=== PATIENT | male | born 1995 | race Caucasian/White ===

== ENCOUNTER 2019-09-30 01:47 | Emergency (ER) | payer SELFPAY ==
--- NOTE | 2019-09-30 01:54 | ED Physician Documentation ---
History of Present Illness - Stated complaint Stated Complaint: LT LEG PAIN - History obtained from History obtained from: Patient (the patient is a 24 y/o m who p/w a cc of 2 weeks of left thigh pain. he denies any trauma or weakness or sob. he denies any back pain or any bowerl or bladder dysfunction, denies any hx of dvt or pe. reports left thigh pain worse with standing.) Review of Systems Constitutional: reports: Reviewed and negative Eyes: reports: Reviewed and negative Ears: reports: Reviewed and negative Nose: reports: Reviewed and negative Throat: reports: Reviewed and negative Cardiac: reports: Reviewed and negative Respiratory: reports: Reviewed and negative GI: reports: Reviewed and negative : reports: Reviewed and negative Skin: reports: Reviewed and negative Musculoskeletal: reports: Extremity pain Neurologic: reports: Reviewed and negative Psychiatric: reports: Reviewed and negative Endocrine: reports: Reviewed and negative Immunocompromised: reports: Reviewed and negative PD PAST MEDICAL HISTORY - Present Medications Home Medications: Ambulatory Orders Medication Instructions Recorded Confirmed No Known Home Medications 09/30/19 09/30/19 - Allergies Allergies/Adverse Reactions: Allergies Allergy/AdvReac Type Severity Reaction Status Date / Time No Known Drug Allergies Allergy Verified 09/30/19 02:16 PD ED PE NORMAL - Vitals Vital signs reviewed: Yes - General General: Alert and oriented X 3, No acute distress, Well developed/nourished - HEENT HEENT: Atraumatic, PERRL, EOMI, Ears normal, Moist mucous membranes, Pharynx benign, Dentition benign - Neck Neck: Supple, no meningeal sign, No bony TTP, No JVD, No bruit, Other - Cardiac Cardiac: RRR, No murmur, Strong equal pulses - Respiratory Respiratory: No respiratory distress, Clear bilaterally - Abdomen Abdomen: Normal bowel sounds, Soft, Non tender, Non distended - Back Back: No CVA TTP, No spinal TTP - Derm Derm: Warm and dry - Extremities Extremities: No deformity, Normal ROM s pain, No edema, No calf tenderness / cord, Other (mild tenderness over left IT band, normal gait, strength is 5/5 in b/l LE, no swelling, no effusions, no crepitus, no discoloration, cap refill less than 2 seconds. ) - Neuro Neuro: Alert and oriented X 3 - Psych Psych: Normal mood, Normal affect Results - Vitals Vitals: Vital Signs - 24 hr 09/30/19 01:50 Temperature 36.4 C L Heart Rate 100 Respiratory 16 Rate Blood Pressure 132/97 H O2 Saturation 100 Oxygen O2 Source Room air PD MEDICAL DECISION MAKING - ED course Complexity details: re-evaluated patient, d/w patient (radiographs recommend MRI. Patient updated, will place in knee immobilizer, provide crutches and keep non weight bearing, and referral provided to patient for orthopedic surgeon for MRI as outpatient. return to ED w any concerns.) Departure - Departure Disposition: Home, Self Care Clinical Impression: Pain of lower extremity Qualifiers: Laterality: left Qualified Code(s): M79.605 - Pain in left leg Condition: Good Instructions: ED Contusion Lower Ext Follow-Up: Tom Stevens MD [Provider Admit Priv/Credential] - Comments: Follow up with orthopedic surgery and or your primary care provider this week to schedule and MRI of your left thigh. Use splint and crutches, do not put weight on your left leg, take ibuprofen as needed for pain. Final Report PT NAME: RUSS RHODES MR#: [id number] REG ER/ED AGE: 24 CI DT/TM: 09/30/1911/14/213 PCP: : 1995 ATT: SEX: M ORD: Ozzy Vanegas EXAM: [id number] XR/FEML2 ([id number]) Reason: left thigh pain Procedure Date: 09/30/2019 Accession Number: [id number] / [id number] Procedure: XR - Femur 2V LT CPT Code: Final Report FULL RESULT: EXAM: LEFT FEMUR RADIOGRAPHY EXAM DATE: 09/30/2019 02:39 AM. CLINICAL HISTORY: Left thigh pain. COMPARISON: None. TECHNIQUE: 2 views. FINDINGS: Bones: Questionable permeative pattern in the lateral cortex of the femoral shaft. Consider MRI for further characterization. Joints: The visualized hip and knee joints are normal. No effusions. Soft Tissues: Normal. No soft tissue swelling. IMPRESSION: Questionable permeative pattern in the lateral cortex of the femoral shaft. Consider MRI with and without contrast for further characterization. [facility] Collator Operator: Reading Radiologist: Armin Mccracken MD Releasing Radiologist: Armin Mccracken MD Released Date Time: 09/30/19244 Report 4 cc: Ozzy Jones DO Principal Computer Systems Auditor Name: Armin Mccracken Provider ID: [id number] Discharge Date/Time: 09/30/19 03:38
[2019-09-30 01:55] VITALS: BP 132/97
[2019-09-30] MEDS ORDERED: IBUPROFEN 800 MG TABLET PO STA (02:14)
--- NOTE | 2019-09-30 02:53 | XRAY Report ---
Reason: left thigh pain Procedure Date: 09/30/2019 Accession Number: [id number] / [id number] Procedure: XR - Femur 2V LT CPT Code: Final Report FULL RESULT: EXAM: LEFT FEMUR RADIOGRAPHY EXAM DATE: 09/30/2019 02:39 AM. CLINICAL HISTORY: Left thigh pain. COMPARISON: None. TECHNIQUE: 2 views. FINDINGS: Bones: Questionable permeative pattern in the lateral cortex of the femoral shaft. Consider MRI for further characterization. Joints: The visualized hip and knee joints are normal. No effusions. Soft Tissues: Normal. No soft tissue swelling. IMPRESSION: Questionable permeative pattern in the lateral cortex of the femoral shaft. Consider MRI with and without contrast for further characterization. [facility]
== END 2019-09-30 03:38 | disposition home or self-care (01) ==
LOC: ED 01:47
DX: M79.652 Pain in left thigh (principal)
CPT/HCPCS: 73552; 99283; 99284; A9270

== ENCOUNTER 2019-10-05 10:25 | Outpatient (CLI) | payer SELFPAY ==
[2019-10-05] MEDS ORDERED: GADOBUTROL 7.5 MMOL/7.5 ML VIAL ONE (10:35)
== END 2019-10-05 10:26 | disposition home or self-care (01) ==
LOC: DI 10:25
PROVIDERS: ATTEND Orthopaedic Surgery Sports Medicine
DX: Z53.9 Procedure and treatment not carried out, unspecified reason (principal)

== ENCOUNTER 2019-10-07 10:39 | Emergency (ER) | payer SELFPAY ==
[2019-10-07 12:11] VITALS: BP 139/100
[2019-10-07] MEDS ORDERED: KETOROLAC 60 MG/2 ML VIAL IM STA (12:50)
[2019-10-07] MEDS ORDERED: CYCLOBENZAPRINE 10 MG TABLET PO STA (12:50)
--- NOTE | 2019-10-07 12:52 | ED Physician Documentation ---
History of Present Illness - Stated complaint Stated Complaint: L SIDE/HIP PX - Chief complaint Chief Complaint: Ext Problem - History obtained from History obtained from: Patient - History of Present Illness Timing: How many weeks ago (3) Pain level max: 8 Pain level now: 8 - Additonal information Additional information: 24-year-old male presents the emergency department stating that his left leg has been hurting for the past 3 weeks. Seen here 1 week ago. Possible permeative process in the lateral cortex of the left femoral shaft. He saw orthopedics who ordered an MRI. He states that he needs an x-ray of his orbits before the MRI can be done. Has been taking Motrin for pain. Does not recall any injury. Works at [employer]. States he took Motrin this morning. Worse with movement and better with rest. No swelling. Review of Systems Ten Systems: 10 systems reviewed and negative Constitutional: denies: Fever, Chills Ears: denies: Ear pain Nose: denies: Rhinorrhea / runny nose, Congestion GI: denies: Vomiting, Diarrhea : denies: Dysuria Skin: denies: Rash Musculoskeletal: denies: Neck pain, Back pain Neurologic: denies: Headache PD PAST MEDICAL HISTORY - Past Medical History Cardiovascular: None Respiratory: None Neuro: None Endocrine/Autoimmune: None GI: None : None HEENT: None Psych: None Musculoskeletal: None Derm: None - Past Surgical History Past Surgical History: Yes - Present Medications Home Medications: Ambulatory Orders Medication Instructions Recorded Confirmed Cyclobenzaprine [Flexeril] 10 mg PO TID PRN #20 tablet 10/07/19 Meloxicam [Mobic] 15 mg PO DAILY PRN #20 tablet 10/07/19 - Allergies Allergies/Adverse Reactions: Allergies Allergy/AdvReac Type Severity Reaction Status Date / Time No Known Drug Allergies Allergy Verified 09/30/19 02:16 - Social History Does the pt smoke?: No Smoking Status: Current every day smoker Does the pt drink ETOH?: Yes ETOH Use: Beer Does the pt have substance abuse?: Yes Substance Use and Type: Marijuana - Immunizations Immunizations are current?: Yes - POLST Patient has POLST: No PD ED PE NORMAL - Vitals Vital signs reviewed: Yes - General General: Alert and oriented X 3, No acute distress - HEENT HEENT: Moist mucous membranes - Neck Neck: Supple, no meningeal sign - Cardiac Cardiac: RRR - Respiratory Respiratory: No respiratory distress, Clear bilaterally - Back Back: No CVA TTP, No spinal TTP - Derm Derm: Warm and dry - Extremities Extremities: No edema, No calf tenderness / cord, Other (Tender to palpation diffusely along the left thigh. No crepitus. No skin changes. No swelling. Neurovascular intact) - Neuro Neuro: Alert and oriented X 3, No motor deficit, No sensory deficit Results - Vitals Vitals: Vital Signs - 24 hr 10/07/19 10/07/19 10:52 12:10 Temperature 36.8 C 37.2 C Heart Rate 83 73 Respiratory 18 20 Rate Blood Pressure 129/91 H 139/100 H O2 Saturation 99 99 Oxygen O2 Source Room air - Labs Labs: Laboratory Tests 10/07/19 10/07/19 13:03 13:03 WBC 12.0 H RBC 5.31 Hgb 15.8 Hct 46.1 MCV 86.8 MCH 29.8 MCHC 34.3 RDW 12.4 Plt Count 288 MPV 11.0 Neut # (Auto) 9.2 H Lymph # (Auto) 1.5 Talbot # (Auto) 1.1 H Eos # (Auto) 0.1 Baso # (Auto) 0.1 Absolute Nucleated RBC 0.00 Nucleated RBC % 0.0 Sodium 138 Potassium 3.5 Chloride 100 L Carbon Dioxide 26 Anion Gap 12.0 BUN 14 Creatinine 0.8 Estimated GFR (MDRD) 118 Glucose 110 H Calcium 9.6 Total Bilirubin 0.6 AST 20 ALT 21 Alkaline Phosphatase 78 Total Protein 8.1 Albumin 4.0 Globulin 4.1 Albumin/Globulin Ratio 1.0 PD MEDICAL DECISION MAKING - ED course Complexity details: reviewed results, re-evaluated patient, considered differential, d/w patient ED course: Unclear etiology of his pain. Feels better after Toradol and Flexeril. He is supposed to have an MRI on the left femur. No significant lab abnormalities. Ambulating well. We will prescribe pain medication for home. Patient counseled regarding signs and symptoms for which I believe and urgent re-evaluation would be necessary. Patient with good understanding of and agreement to plan and is comfortable going home at this time This document was made in part using voice recognition software. While efforts are made to proofread this document, sound alike and grammatical errors may occur. Departure - Departure Disposition: Home, Self Care Clinical Impression: Pain of lower extremity Qualifiers: Laterality: left Qualified Code(s): M79.605 - Pain in left leg Condition: Good Instructions: ED Acute Pain [facility] Follow-Up: Uri Taylor MD [Primary Care Provider] - Within 1 week Prescriptions: Cyclobenzaprine [Flexeril] 10 mg PO TID PRN #20 tablet PRN Reason: Spasms Meloxicam [Mobic] 15 mg PO DAILY PRN #20 tablet PRN Reason: pain Comments: The cause of your pain is unclear today. Follow-up with your doctor and orthopedics for further care. You should have the MRI as instructed by Dr. Setvens. Do not drive or operate heavy machinery while taking the Flexeril. Discharge Date/Time: 10/07/19 13:52
[2019-10-07 13:14] LABS: BASOPHILS # (AUTO) 0.1 10^3/uL (0.0-0.1); BASOPHILS % (AUTO) 0.4 %; EOSINOPHILS # (AUTO) 0.1 10^3/uL (0.0-0.7); EOSINOPHILS % (AUTO) 1.2 %; HGB - HEMOGLOBIN 15.8 g/dL (14.0-18.0); LYMPHOCYTES # (AUTO) 1.5 10^3/uL (1.5-3.5); LYMPHOCYTES % (AUTO) 12.1 %; MEAN CORPUSCULAR HEMOGLOBIN 29.8 pg (27.0-31.0); MEAN CORPUSCULAR HGB CONC 34.3 g/dL (32.0-36.0); MEAN CORPUSCULAR VOLUME 86.8 fL (80.0-94.0); MONOCYTES # (AUTO) 1.1 10^3/uL (0.0-1.0); MONOCYTES % (AUTO) 9.3 %; NEUTROPHILS # (AUTO) 9.2 10^3/uL (1.5-6.6); NEUTROPHILS % (AUTO) 76.7 %; PLT - PLATELET COUNT 288 10^3/uL (130-450); RED BLOOD COUNT 5.31 10^6/uL (4.70-6.10); RED CELL DISTRIBUTION WIDTH 12.4 % (12.0-15.0)
[2019-10-07 13:26] LABS: BILIRUBIN,TOTAL 0.6 mg/dL (0.2-1.0); CALCIUM 9.6 mg/dL (8.5-10.3); CREATININE 0.8 mg/dL (0.6-1.2); TOTAL PROTEIN 8.1 g/dL (6.7-8.2)
== END 2019-10-07 13:52 | disposition home or self-care (01) ==
LOC: ED 10:39
DX: M79.605 Pain in left leg (principal); F17.200 Nicotine dependence, unspecified, uncomplicated
CPT/HCPCS: 36415; 80053; 85025; 96372; 99283; 99284; A9270

== ENCOUNTER 2019-10-09 17:06 | Outpatient (CLI) | payer SELFPAY ==
--- NOTE | 2019-10-09 17:25 | XRAY Report ---
Reason: HX OF METAL IN EYES Procedure Date: 10/09/2019 Accession Number: [id number] / [id number] Procedure: XR - Eye Foreign Body CPT Code: Final Report FULL RESULT: EXAM: ORBITS RADIOGRAPHY EXAM DATE: 10/09/2019 05:18 PM. HISTORY: MRI needed. Patient history makes an orbital metallic foreign body possible. History of metal in eyes. COMPARISONS: None. TECHNIQUE: 1 view. FINDINGS: Bones: Normal. No fractures or bone lesions. Sinuses: Normal. No opacities or fluid levels. Other: Normal. No soft tissue swelling. No radiopaque foreign bodies. IMPRESSION: Normal orbit radiography. No radiopaque foreign bodies. [facility]
[2019-10-09] MEDS ORDERED: GADOBUTROL 7.5 MMOL/7.5 ML VIAL ONE (17:46)
[2019-10-09] MEDS ORDERED: GADOBUTROL 7.5 MMOL/7.5 ML VIAL IVP ONE (18:48)
--- NOTE | 2019-10-09 20:14 | MRI Report ---
Reason: LT THIGH PAIN Procedure Date: 10/09/2019 Accession Number: [id number] / [id number] Procedure: MRI - Femur/Thigh LT W/WO CPT Code: Final Report FULL RESULT: EXAM: LEFT FEMUR/THIGH MRI WITHOUT AND WITH CONTRAST EXAM DATE: 10/09/2019 07:01 PM. CLINICAL HISTORY: LT THIGH PAIN. COMPARISON: FEMUR 2V LT 09/30/2019 2:11 AM. TECHNIQUE: Multiplanar, multisequence T1-weighted and fluid-sensitive sequences of the thigh before and after administration of intravenous contrast. IV contrast: GADAVIST . Other: None. FINDINGS: There is a marked abnormality of the midshaft of the left femur and overlying soft tissues. This includes diffuse T2 hyperintensity and T1 hypointensity as well as enhancement in the central medullary space with an irregular defect in the overlying lateral cortex of the mid femoral diaphysis. There is also diffuse somewhat heterogeneous T2 hyperintensity and enhancement surrounding this lesion in the overlying vastus intermedius muscle. The intramedullary signal abnormality encompasses a region measuring 13.5 cm from proximal to distal. The cortical defect of the lateral femoral cortex encompasses a region measuring 6.1 cm proximal to distal. The abnormal tissue in the vastus intermedius surrounding the femoral abnormality encompasses a region measuring 5.4 cm AP by 4.6 cm transverse by 13.1 cm craniocaudad. The findings are somewhat nonspecific. This may reflect osteomyelitis with overlying infectious myositis of the vastus intermedius, though no intramedullary or extraosseous abscess is apparent. Alternatively, it is possible this reflects malignancy, potentially osteosarcoma or Parson sarcoma. Correlation with signs or symptoms of infection is suggested. There is linear T2 hyperintensity/enhancement along the intermuscular fascial planes between the superficial margin of the vastus intermedius and deep margin of the vastus lateralis, between the superficial margin of the vastus intermedius and rectus femoris, and between the superficial margin of the vastus intermedius and the deep margin of the vastus medialis. If the femoral abnormality is infectious this suggests extension of inflammation in the intermuscular fascial planes. If this is neoplastic it raises the question of tumor extension along the fascial margins. Much smaller more linear foci of T2 hyperintensity extending distally from the intramedullary lesion towards the distal femoral metaphysis. These appear vascular and are probably not further foci of infection or potential neoplasm. Osseous and soft tissues elsewhere are normal. IMPRESSION: 1. Markedly abnormal left thigh MRI including diffusely abnormal signal in the medullary space of the mid femoral diaphysis, an overlying irregular defect in the lateral cortex of the mid femoral diaphysis, and diffuse surrounding soft tissue abnormality in the vastus intermedius. Diffuse enhancement is present throughout this region. Though it is possible this reflects osteomyelitis and infectious myositis, there is no abscess either within the medullary space nor in the overlying soft tissues. It is possible this instead reflects soft tissue sarcoma including Parson's sarcoma or osteosarcoma. SENDY The call report notification system was initiated by Dr. Jake John at 07:12 PM on 10/09/2019. Comment: Multiple attempts were made to reach Dr. Stevens without success. The above findings were discussed directly with the patient. The patient reports severe thigh pain and he was encouraged to seek care at his local emergency room, and also notify the emergency room doctor of his abnormal MRI, and he was given instructions on how to reach [facility] so the MRI report could be transmitted to the emergency room. The patient was also instructed to contact Dr. Stevens's office first thing in the morning.
== END 2019-10-09 17:07 | disposition home or self-care (01) ==
LOC: DI 17:06
PROVIDERS: ATTEND Orthopaedic Surgery Sports Medicine
DX: M79.652 Pain in left thigh (principal); R93.6 Abnormal findings on diagnostic imaging of limbs; Z87.828 Personal history of other (healed) physical injury and trauma
CPT/HCPCS: 70030; 73720; A9585

== ENCOUNTER 2019-10-09 20:14 | Emergency (ER) | payer SELFPAY ==
[2019-10-09] MEDS ORDERED: HYDROmorphone 1 MG/ML CARPUJECT IM STA (20:41)
[2019-10-09] MEDS ORDERED: oxyCODONE/ACET 5/325 Prepack 4 PO STA (20:42)
--- NOTE | 2019-10-09 20:42 | ED Physician Documentation ---
History of Present Illness - Stated complaint Stated Complaint: ABNORMAL MRI - Chief complaint Chief Complaint: Ext Problem - History obtained from History obtained from: Patient (He is had several weeks of atraumatic and worsening left thigh pain. He was seen here and x-ray was mildly abnormal and followed up with Dr. Stevens and had an MRI today showing likely bone cancer. Nothing in the history really suggest infection. I was able to talk with Dr. Stevens who will follow up with the patient tomorrow.) - History of Present Illness Timing: Other Review of Systems Constitutional: denies: Fever, Chills Nose: reports: Reviewed and negative Cardiac: reports: Reviewed and negative Respiratory: reports: Reviewed and negative PD PAST MEDICAL HISTORY - Past Medical History Past Medical History: No Cardiovascular: None Respiratory: None Neuro: None Endocrine/Autoimmune: None GI: None : None HEENT: None Psych: None Musculoskeletal: None Derm: None - Past Surgical History Past Surgical History: No - Present Medications Home Medications: Ambulatory Orders Medication Instructions Recorded Confirmed Cyclobenzaprine [Flexeril] 10 mg PO TID PRN #20 tablet 10/07/19 Meloxicam [Mobic] 15 mg PO DAILY PRN #20 tablet 10/07/19 Oxycodone HCl/Acetaminophen 1 - 2 each PO Q6H PRN #30 tablet 10/09/19 [Percocet 5-325 mg Tablet] - Allergies Allergies/Adverse Reactions: Allergies Allergy/AdvReac Type Severity Reaction Status Date / Time No Known Drug Allergies Allergy Verified 10/09/19 20:22 - Social History Does the pt smoke?: No Smoking Status: Never smoker Does the pt drink ETOH?: Yes Does the pt have substance abuse?: Yes - Immunizations Immunizations are current?: Yes - POLST Patient has POLST: No PD ED PE NORMAL - Vitals Vital signs reviewed: Yes - General General: Alert and oriented X 3, Other (appears in pain) - Extremities Extremities: Other (No obvious deformity or skin changes of the left thigh/femur) - Neuro Neuro: Alert and oriented X 3, Normal speech Results - Vitals Vitals: Vital Signs - 24 hr 10/09/19 10/09/19 20:22 21:20 Temperature 36.6 C Heart Rate 94 90 Respiratory 16 14 Rate Blood Pressure 142/83 H 140/80 H O2 Saturation 99 99 Oxygen O2 Source Room air - Labs Labs: Laboratory Tests 10/09/19 10/09/19 10/09/19 20:52 20:52 20:52 WBC 11.5 H RBC 5.09 Hgb 15.4 Hct 44.0 MCV 86.4 MCH 30.3 MCHC 35.0 RDW 11.9 L Plt Count 311 MPV 10.8 Neut # (Auto) 8.2 H Lymph # (Auto) 2.1 Cecil # (Auto) 1.1 H Eos # (Auto) 0.1 Baso # (Auto) 0.0 Absolute Nucleated RBC 0.00 Nucleated RBC % 0.0 ESR 25 H Sodium 137 Potassium 3.0 L Chloride 97 L Carbon Dioxide 24 Anion Gap 16.0 H BUN 15 Creatinine 0.9 Estimated GFR (MDRD) 103 Glucose 98 Calcium 9.3 Total Bilirubin 0.7 AST 17 ALT 17 Alkaline Phosphatase 82 C-Reactive Protein 6.3 H Total Protein 7.9 Albumin 3.9 Globulin 4.0 Albumin/Globulin Ratio 1.0 Lipase 28 PD MEDICAL DECISION MAKING - ED course ED course: Case discussed by phone with the orthopedic surgeon who is been seeing him, will follow up with him tomorrow and recommends nonweightbearing. Did want us to obtain some baseline labs to help with follow-up. 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 Call Dr. Stevens tomorrow to help arrange for a referral to an orthopedic oncologist. Return anytime for new or worsening symptoms. Do not drink or drive while taking narcotic pain medication. Note that many narcotic pain relievers also contain Tylenol/acetaminophen. Please ensure that your total dose of acetaminophen from all sources does not exceed 3 g (3000 mg) per day. You may get constipated while on this medication. Take a stool softener such as Colace twice a day while you are on it. Also add an [id number] laxative such as senna or MiraLAX on any day that you do not have a bowel movement. If you received a narcotic pain medication or sedative while in the emergency department, do not drive for the next 24 hours. Discharge Date/Time: 10/09/19 21:23
[2019-10-09 21:08] LABS: BASOPHILS % (AUTO) 0.3 %; EOSINOPHILS # (AUTO) 0.1 10^3/uL (0.0-0.7); HGB - HEMOGLOBIN 15.4 g/dL (14.0-18.0); LYMPHOCYTES # (AUTO) 2.1 10^3/uL (1.5-3.5); LYMPHOCYTES % (AUTO) 17.8 %; MEAN CORPUSCULAR HEMOGLOBIN 30.3 pg (27.0-31.0); MEAN CORPUSCULAR VOLUME 86.4 fL (80.0-94.0); MEAN PLATELET VOLUME 10.8 fL (7.4-11.4); MONOCYTES # (AUTO) 1.1 10^3/uL (0.0-1.0); MONOCYTES % (AUTO) 9.3 %; NEUTROPHILS # (AUTO) 8.2 10^3/uL (1.5-6.6); NEUTROPHILS % (AUTO) 71.3 %; PLT - PLATELET COUNT 311 10^3/uL (130-450); RED BLOOD COUNT 5.09 10^6/uL (4.70-6.10); RED CELL DISTRIBUTION WIDTH 11.9 % (12.0-15.0); WHITE BLOOD COUNT 11.5 x10^3/uL (4.8-10.8)
[2019-10-09 21:21] VITALS: BP 140/80
[2019-10-09 21:29] LABS: ALBUMIN 3.9 g/dL (3.2-5.5); BILIRUBIN,TOTAL 0.7 mg/dL (0.2-1.0); CALCIUM 9.3 mg/dL (8.5-10.3); CREATININE 0.9 mg/dL (0.6-1.2); CRP - C-REACTIVE PROTEIN 6.3 mg/dL (0-1.0); TOTAL PROTEIN 7.9 g/dL (6.7-8.2)
== END 2019-10-09 21:23 | disposition home or self-care (01) ==
LOC: ED 20:14
DX: M79.652 Pain in left thigh (principal); R93.6 Abnormal findings on diagnostic imaging of limbs
CPT/HCPCS: 36415; 80053; 83690; 85025; 85651; 86140; 96372; 99283; J1170